=== PATIENT | female | born 2000 | race American Indian/Alaskan Native ===

== ENCOUNTER 2019-03-14 08:51 | Emergency (ER) | payer SELFPAY ==
[2019-03-14] MEDS ORDERED: SODIUM CHLORIDE 0.9% 1000 ML 1,000 ML IV ONE ×3 (11:32→14:32)
[2019-03-14] MEDS ORDERED: fentaNYL 100 MCG/2 ML INJ IV ONE (11:32)
[2019-03-14] MEDS ORDERED: ONDANSETRON 4 MG/2 ML INJ IV ONE (11:32)
--- NOTE | 2019-03-14 11:38 | Emergency Department Report ---
HPI - General Chief Complaint: Pain General Time Seen by Provider: 03/14/19 11:06 - HPI HPI: Room 39 The patient is a 18-year-old female presenting with a chief complaint of lateral knee pain. The patient states his symptoms began 2 days ago with pain in the left knee. The patient states today she developed pain in both knees. Patient denies any preceding trauma. Patient denies history of fever or new rashes. Patient denies any recent flights or long car trips. Patient denies dysuria, hematuria or vaginal discharge. Patient admits to nausea but denies vomiting Location: [See above] Duration: [See above] Quality: [See above] Severity: [See above] Timing: [See above] Context: [See above] Modifying factors: [See above] Associated signs and symptoms: [see above] ED Past Medical Hx - Past Medical History Previous Medical History?: No - Surgical History Past Surgical History?: No - Family History Family history: no significant - Social History Smoking Status: Never Smoker Substance Use Type: None (denies illicit drug use) - Medications Home Medications: Home Medications Medication Instructions Recorded Confirmed Last Taken Type Naproxen [Naprosyn] 500 mg PO Q12H PRN #20 tablet 03/14/19 Unknown Rx traMADoL [Ultram] 50 mg PO Q6HR PRN #10 tablet 03/14/19 Unknown Rx ED Review of Systems ROS: Stated complaint: JOINT PAIN/NAUSEA Other details as noted in HPI Constitutional: denies: no symptoms reported, fever Eyes: denies: eye pain ENT: denies: throat pain Respiratory: no symptoms reported Cardiovascular: chest pain (intermittently times years. Last time occurred 1 month ago) Endocrine: no symptoms reported Gastrointestinal: nausea. denies: vomiting Genitourinary: denies: dysuria, hematuria, discharge Musculoskeletal: arthralgia. denies: back pain Neurological: denies: headache Physical Exam - Physical Exam Vital Signs: Vital Signs 03/14/19 09:40 Temperature 98.8 F Pulse Rate 122 H Respiratory 18 Rate Blood Pressure 143/80 O2 Sat by Pulse 98 Oximetry Laboratory Tests 03/14/19 03/14/19 03/14/19 11:48 11:48 11:48 WBC 5.6 RBC 4.43 Hgb 12.9 Hct 37.6 MCV 85 MCH 29 MCHC 34 RDW 13.2 Plt Count 216 Lymph % (Auto) 4.7 L Rogers % (Auto) 10.7 H Eos % (Auto) 1.0 Baso % (Auto) 0.5 Lymph # 0.3 L Rogers # 0.6 Eos # 0.1 Baso # 0.0 Seg Neutrophils % 83.1 H Seg Neutrophils # 4.7 PT INR APTT Sodium 138 Potassium 3.6 Chloride 103.8 Carbon Dioxide 19 L Anion Gap 19 BUN 10 Creatinine 0.7 Estimated GFR > 60 BUN/Creatinine Ratio 14 Glucose 89 Lactic Acid 1.40 Calcium 9.3 Total Creatine Kinase HCG, Qual 03/14/19 03/14/19 03/14/19 11:48 11:48 11:48 WBC RBC Hgb Hct MCV MCH MCHC RDW Plt Count Lymph % (Auto) Rogers % (Auto) Eos % (Auto) Baso % (Auto) Lymph # Rogers # Eos # Baso # Seg Neutrophils % Seg Neutrophils # PT 13.6 INR 1.03 APTT 30.4 Sodium Potassium Chloride Carbon Dioxide Anion Gap BUN Creatinine Estimated GFR BUN/Creatinine Ratio Glucose Lactic Acid Calcium Total Creatine Kinase 97 HCG, Qual Negative Physical Exam: GENERAL: The patient is well-developed well-nourished female sitting on stretcher not appearing to be in acute distress. [] HEENT: Normocephalic. Atraumatic. Extraocular motions are intact. Patient has moist mucous membranes. NECK: Supple. Trachea midline CHEST/LUNGS: Clear to auscultation. There is no respiratory distress noted. HEART/CARDIOVASCULAR: Regular. There is tachycardia. There is no gallop rub or murmur. ABDOMEN: Abdomen is soft, nontender. Patient has normal bowel sounds. There is no abdominal distention. SKIN: There is no rash. There is no edema. There is no diaphoresis. NEURO: The patient is awake, alert, and oriented. The patient is cooperative. The patient has no focal neurologic deficits. The patient has normal speech MUSCULOSKELETAL: There is no tenderness or deformity. There is tenderness to palpation of the left calf. There is no increased warmth or effusion appreciated bilateral knee joints. There is no evidence of acute injury. ED Course Vital Signs 03/14/19 09:40 Temperature 98.8 F Pulse Rate 122 H Respiratory 18 Rate Blood Pressure 143/80 O2 Sat by Pulse 98 Oximetry ED Medical Decision Making - Lab Data Result diagrams: 03/14/19 11:48 03/14/19 11:48 Laboratory Tests 03/14/19 03/14/19 03/14/19 11:48 11:48 11:48 WBC 5.6 RBC 4.43 Hgb 12.9 Hct 37.6 MCV 85 MCH 29 MCHC 34 RDW 13.2 Plt Count 216 Lymph % (Auto) 4.7 L Rogers % (Auto) 10.7 H Eos % (Auto) 1.0 Baso % (Auto) 0.5 Lymph # 0.3 L Rogers # 0.6 Eos # 0.1 Baso # 0.0 Seg Neutrophils % 83.1 H Seg Neutrophils # 4.7 PT INR APTT Sodium 138 Potassium 3.6 Chloride 103.8 Carbon Dioxide 19 L Anion Gap 19 BUN 10 Creatinine 0.7 Estimated GFR > 60 BUN/Creatinine Ratio 14 Glucose 89 Lactic Acid 1.40 Calcium 9.3 Total Creatine Kinase HCG, Qual 03/14/19 03/14/19 03/14/19 11:48 11:48 11:48 WBC RBC Hgb Hct MCV MCH MCHC RDW Plt Count Lymph % (Auto) Rogers % (Auto) Eos % (Auto) Baso % (Auto) Lymph # Rogers # Eos # Baso # Seg Neutrophils % Seg Neutrophils # PT 13.6 INR 1.03 APTT 30.4 Sodium Potassium Chloride Carbon Dioxide Anion Gap BUN Creatinine Estimated GFR BUN/Creatinine Ratio Glucose Lactic Acid Calcium Total Creatine Kinase 97 HCG, Qual Negative - Radiology Data Radiology results: report reviewed (bilateral lower extremity Dopplers), image reviewed (bilateral lower extremity Dopplers) [facility] [address] [place] [address] Vascular Lab Report Signed Patient: REN RZIVI MR#: [id number] : 2000 Acct:[id number] Age/Sex: 18 / F ADM Date: 03/14/19 Loc: ED Attending Dr: Ordering Physician: MARTIN TUTTLE MD Date of Service: 03/14/19 Procedure(s): VL venous duplex LE BILAT Accession Number(s): [id number] cc: MARTIN TUTTLE MD DUPLEX DOPPLER LOWER EXTREMITY VEINS, BILATERAL INDICATION: Bilateral lower extremity pain. TECHNIQUE: Duplex doppler imaging was performed through the veins of both lower extremities using venous compression and other maneuvers. COMPARISON: None available. FINDINGS: Right Common femoral vein: Negative. Right Superficial femoral vein: Negative. Right Popliteal vein: Negative. Right Calf veins: Negative. Left Common femoral vein: Negative. Left Superficial femoral vein: Negative. Left Popliteal vein: Negative. Left Calf veins: Negative. Additional findings: None. IMPRESSION: 1. No sonographic evidence for DVT in either lower extremity. Signer Name: Ryder Thmopson MD Signed: 03/14/2019 12:38 PM Workstation Name: [id number] Transcribed By: SS Dictated By: Ryder Thompson MD Electronically Authenticated By: Ryder Thompson MD Signed Date/Time: 03/14/191237 DD/ 37 TD/TT: - Differential Diagnosis arthralgia, polyarthralgia, DVT, Critical care attestation.: If time is entered above; I have spent that time in minutes in the direct care of this critically ill patient, excluding procedure time. ED Disposition Clinical Impression: Arthralgia Disposition: - TO HOME OR SELFCARE Is pt being admited?: No Does the pt Need Aspirin: No Condition: Stable Instructions: Arthralgia (ED), Knee Pain (ED) Additional Instructions: Return to the emergency department should you develop worsening symptoms, inability to tolerate food or liquids, high fever or any other concerns Prescriptions: Naproxen [Naprosyn] 500 mg PO Q12H PRN #20 tablet PRN Reason: Pain, Moderate (4-6) traMADoL [Ultram] 50 mg PO Q6HR PRN #10 tablet PRN Reason: Pain Referrals: CRISTEL RESENDEZ DO [Staff Physician] - [facility] (Dr Resendez is a primary physician. Please follow-up with him to be established as a patient) Time of Disposition: 15:25
[2019-03-14 12:04] LABS: Basophils % (Auto) 0.5 % (0.0-1.8); Eosinophils # (Auto) 0.1 K/mm3 (0.0-0.4); Hematocrit 37.6 % (30.3-42.9); Hemoglobin 12.9 gm/dl (10.1-14.3); Lymphocytes # (Auto) 0.3 K/mm3 (1.2-5.4); Lymphocytes % (Auto) 4.7 % (13.4-35.0); Mean Corpuscular HGB Conc 34 % (30-34); Mean Corpuscular Volume 85 fl (79-97); Monocytes # (Auto) 0.6 K/mm3 (0.0-0.8); Monocytes % (Auto) 10.7 % (0.0-7.3); Platelet Count 216 K/mm3 (140-440); Red Blood Count 4.43 M/mm3 (3.65-5.03); Red Cell Distribution Width 13.2 % (13.2-15.2)
[2019-03-14 12:15] LABS: INR 1.03 (0.87-1.13)
[2019-03-14 12:16] LABS: Partial Thromboplastin Time 30.4 Sec. (24.2-36.6)
[2019-03-14 12:20] LABS: BUN/Creatinine Ratio 14; Blood Urea Nitrogen 10 mg/dL (7-17); Calcium 9.3 mg/dL (8.4-10.2); Hemolysis Index 1
--- NOTE | 2019-03-14 12:42 | Vascular Lab Report ---
DUPLEX DOPPLER LOWER EXTREMITY VEINS, BILATERAL INDICATION: Bilateral lower extremity pain. TECHNIQUE: Duplex doppler imaging was performed through the veins of both lower extremities using venous gladys kathy and other maneuvers. COMPARISON: None available. FINDINGS: Right Common femoral vein: Negative. Right Superficial femoral vein: Negative. Right Popliteal vein: Negative. Right Calf veins: Negative. Left Common femoral vein: Negative. Left Superficial femoral vein: Negative. Left Popliteal vein: Negative. Left Calf veins: Negative. Additional findings: None. IMPRESSION: 1. No sonographic evidence for DVT in either lower extremity. Signer Name: Ryder Thompson MD Signed: 03/14/2019 12:38 PM Workstation Name: [id number]
[2019-03-14 15:22] VITALS: BP 112/52
== END 2019-03-14 15:36 | disposition home or self-care (01) ==
LOC: ED 08:51
DX: M25.562 Pain in left knee (principal); M25.561 Pain in right knee
CPT/HCPCS: 36415; 80048; 82140; 82550; 84703; 85025; 85610; 85730; 87040; 93970; 96374; 96375; 99284; J2405; J3010; J7030

== ENCOUNTER 2021-10-06 03:09 | Emergency (ER) | payer SELFPAY ==
[2021-10-06 03:29] VITALS: BP 122/62
== END 2021-10-06 10:35 | disposition left against medical advice (07) ==
LOC: ED 03:09
DX: R53.1 Weakness (principal); Z53.21 Procedure and treatment not carried out due to patient leaving prior to being seen by health care provider